=== PATIENT | female | born 1995 | race Caucasian/White ===

== ENCOUNTER 2022-11-20 05:09 | Emergency (ER) | payer OTHER ==
--- NOTE | 2022-11-20 05:19 | NUR ---
patient called to triage no answer
--- NOTE | 2022-11-20 05:50 | NUR ---
patient not in waiting room
== END 2022-11-20 05:51 | disposition left against medical advice (07) ==
LOC: ER 05:12
DX: Z53.21 Procedure and treatment not carried out due to patient leaving prior to being seen by health care provider (principal)